=== PATIENT | male | born 1980 | race Caucasian/White ===

== ENCOUNTER → 2017-06-28 | Outpatient (CLI) | payer BC ==
--- NOTE | 2017-06-28 13:01 | RADIOLOGY REPORT (SQ) ---
EXAM DESCRIPTION: MRI LUMBAR SPINE WITHOUT COMPLETED DATE/TIME: 06/28/2017 12:08 pm REASON FOR STUDY: LUMBAR RADICULOPATHY (M54.16) M54.16 RADICULOPATHY, LUMBAR REGION COMPARISON: None. TECHNIQUE: Sagittal and Axial imaging includes T1, T2, STIR and gradient echo sequences. Coronal T2/ HASTE imaging. LIMITATIONS: None. FINDINGS: VISUALIZED UPPER ABDOMEN: Limited evaluation. No acute or suspicious findings suggested. SEGMENTATION: No transitional anatomy. The lowest well-developed disc space is labeled L5-S1. ALIGNMENT: Anatomic. VERTEBRAE: Intact. BONE MARROW: Normal. No marrow replacement or reactive changes. DISC SIGNAL: There is minimal loss of T2 signal seen within the disc space at L3-L4 and L4-L5. POSTERIOR ELEMENTS: Generally intact. No pars defect evident. HARDWARE: None in the spine. CORD AND CONUS: Normal in size and signal intensity. Conus at the appropriate level, L1. SOFT TISSUES: No aortic aneurysm seen. No bulky retroperitoneal adenopathy or mass. No paraspinal mas s or fluid. L1-L2: No disc bulging or focal disc protrusion. Mild facet hypertrophy and ligamentum flavum thick ening. No significant spinal stenosis or exit foraminal stenosis. L2-L3: Minimal disc bulging without focal disc protrusion. Mild facet hypertrophy/ arthropathy ligam entum flavum thickening. No significant spinal canal stenosis or neural foraminal narrowing. L3-L4: Circumferential disc bulging without focal disc protrusion. Facet hypertrophy/arthropathy wit h mild ligamentum flavum thickening. No significant spinal canal stenosis. Moderate to severe right neural foraminal narrowing possible compression of the exiting nerve for. Mild left neural foramina l narrowing. L4-L5: Circumferential disc bulging without focal disc protrusion. There is facet hypertrophy/ arthr opathy and ligamentum flavum thickening. No significant spinal canal stenosis present. There is mil d right neural foraminal narrowing and moderate left neural foraminal narrowing. L5-S1: Mild circumferential disc bulging. No focal disc protrusion. No spinal canal stenosis. Face t hypertrophy and ligamentum flavum thickening. No significant neural foraminal narrowing. LOWER THORACIC: Incompletely imaged. No stenosis seen. SACRUM: Visualized upper sacrum intact. OTHER: No other significant findings. IMPRESSION: 1. Mild multi degenerative disc disease and multilevel facet arthropathy/hypertrophy thr oughout the lumbar spine as detailed above. 2. No significant spinal canal stenosis. 3. Moderate to severe neural foraminal narrowing noted on the right at L3-L4 appears to be possible compression of the exiting nerve root. Mild left neural foraminal narrowing at L3-L4 and on the righ t at L4-L5. Moderate neural foraminal narrowing noted on the left at L4-L5. TECHNICAL DOCUMENTATION: JOB ID: [id number] [employer]- All Rights Reserved
== END ==
LOC: RAD 11:15
PROVIDERS: ATTEND Specialist
DX: M51.16 Intervertebral disc disorders with radiculopathy, lumbar region (principal)
CPT/HCPCS: 72148